=== PATIENT | female | born 1985 | race Caucasian/White ===

== ENCOUNTER 2016-06-29 03:21 | Inpatient (IN) | payer MEDICAID ==
[2016-06-29] VITALS (22 sets, daily range): BP systolic 107–144; BP diastolic 56–92
[~2016-06-29] VITALS: Ht 170.2 cm; Wt 89.5 kg
[2016-06-29] MEDS ORDERED: PREN1TAB19 PO (04:32)
[2016-06-29] MEDS ORDERED: SODIUM CHLORIDE FLUSH 10 ML ONE (04:53)
[2016-06-29] MEDS ORDERED: LIDOCAINE 1% (XYLOCAINE) 20 ML VIAL ONE (05:03)
[2016-06-29] MEDS ORDERED: OXYTOCIN INJ 20 UNIT in NS 1000ml 1,000 ML IV PRN (06:00)
[2016-06-29] MEDS ORDERED: CALCIUM CARBONATE CHEWABLE 300 MG (TUMS) TABLET PO PRN (06:00)
--- OUTSIDE RECORDS SUMMARY | 2016-06-29 06:06 | XMS REPORT | Continuity of Care Document ---
Author Author [facility] [place] Organization [facility] [place] Address [address] [place] [address] Phone Care Team Providers Care Electronics Specialist Name Role Phone Tom Shaver MD PP Yuniel Marin Unavailable Yuniel New CP Tom Reynolds Unavailable Unavailable Problems Name Dates Details Eczema, dyshidrotic (705.81, L30.1) Status: Active FEMALE GENERAL EXAM, 18 - 39 YEARS (V70.0) Status: Active Physical examination of employee (V70.5, Z02.89) Status: Active Medications Name Dates Details HYDROCORTISONE, 2.5% (External Ointment) 1 (one) Ointment apply to affected area bid for 30 days Quantity: 1 {Tube} Refills: 0 Ordered:22-Jul-2014 Nichole Ching Start 22-Jul-2014 Active No Known Historical Medications Allergies and Adverse Reactions Name Dates Details No Known Allergies (Allergy) Onset:21-Jan-2014 Status: Active No Known Drug Allergies (Allergy) Onset:21-Jan-2014 Status: Active Past Medical History No Significant Medical History. Procedures Procedure Dates Details SPECIMEN HANDLING/TRANSPORT (21546) Ordered:20-Jul-2014 Preventive Health - Female age 18 to 39 years Ordered:20-Jul-2014 Social History Name Dates Details Alcohol use: Occasional alcohol use. Status: Active Tobacco use: Never smoker. Status: Active Vital Signs Date Test Result Details 20-Jul-2014 08:57 Temperature 98.2 f Comments: Method: Temporal Pulse 76 /min Comments: Pattern: Regular BP Systolic 120 mm[Hg] Comments: Patient Position: Sitting; Cuff Location: Left Arm; Cuff Size: Standard BP Diastolic 82 mm[Hg] Comments: Patient Position: Sitting; Cuff Location: Left Arm; Cuff Size: Standard Weight 163 lb Height 67 in Body Mass Index Calculated 25.53 kg/m2 Body Surface Area Calculated 1.85 m2 21-Jan-2014 14:38 Comments: Vision: Rt-20/20; Lt-20/20 Temperature 98 f Comments: Method: Temporal Pulse 68 /min Comments: Pattern: Regular Respiration Rate 16 /min Comments: Pattern: Unlabored BP Systolic 114 mm[Hg] Comments: Patient Position: Sitting; Cuff Location: Left Arm; Cuff Size: Standard BP Diastolic 70 mm[Hg] Comments: Patient Position: Sitting; Cuff Location: Left Arm; Cuff Size: Standard Weight 157 lb Height 66.5 in Body Mass Index Calculated 24.96 kg/m2 Body Surface Area Calculated 1.81 m2 Results No Known Results Treatment Plan PAP, THIN PREP ([id number]); Ordered: 07/20/2014 Advance Directives Encounters Office Visit - FEMALE GENERAL EXAM, 18 - 39 YEARS (V70.0), Eczema, dyshidrotic (705.81 | L30.1) Encounter Reason: Well woman visit - The patient feels well with minor complaints, has good energy level and is sleeping well. Last menstrual period: Date: (06/29/14). Pap smear: Date: (2009) and Results-negative/normal. The patient is not using any method of contraception at this time. Nutrition: balanced diet and no supplemental vitamins & iron. Patient exercises daily (at work). Patient sleeps 5 hours per night. The patient reports she does not perform a monthly self breast exam., [ADDITIONAL REASON] Rash - Symptoms include skin bumps, pain, pruritus and skin redness. The skin rash is located on the left hand and right hand. Onset was sudden 2 week(s) ago. The symptoms occur constantly. The patient describes this as mild and worsening. Current treatment includes barrier creams. [facility] [place] 20-Jul-2014 to 22-Jul-2014 Office Visit - Physical examination of employee (V70.5 | Z02.89) Encounter Reason: Employee Physical - [employer] [facility]. 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 [facility] [place] On 21-Jan-2014 14:36 to 15:38 Insurance Mar Forrester ; [facility]
[2016-06-29 06:35] LABS: MEAN CORPUSCULAR HEMOGLOBIN 29.6 PG (26.0-34.0); MEAN CORPUSCULAR HGB CONC 34.9 g/dL (31.0-37.0); MEAN PLATELET VOLUME 10.6 FL (6.0-9.5); WHITE BLOOD COUNT 8.25 10^3uL (4.0-11.0)
[2016-06-29] MEDS ORDERED: SODIUM CHLORIDE FLUSH 10 ML SYR IV PRN (07:40)
[2016-06-29] MEDS ORDERED: SODIUM CHLORIDE FLUSH 3 ML SYR IV PRN (07:40)
--- NOTE | 2016-06-29 13:27 | History and Physical (E) ---
History & Physical (OB) Subjective: CC: cindy khan 30 year old at 39 1/7 weeks presents with rupture of membranes at home this morning at 01:30. Contractions every 5 minutes, mild intensity. Good movement, no vaginal bleeding. has been complicated by diet controlled gestational diabetes, anemia, and latex allergy. PNC: [facility] Hx: none PMHx: anemia and latex allergy PSHx: FOB Jean Carlos Shepherd. No tob/EtOH/ILD Allergies: Coded Allergies: latex (Verified Allergy, Intermediate, Rash, 06/29/16) had a rash and blisters from use of a condom Home Medications: Reported Medications Vit/Fe Fumarate/Fa ( Vitamins Tablet)1 Each Tablet1 Each PO DAILY #1 TAB 06/29/16 Objective: Vital Signs Date Time Temp Pulse Resp B/P Pulse Ox O2 Delivery O2 Flow Rate FiO2 06/29/16 11:37 71 138/84 06/29/16 06:45 97.8 18 06/29/16 06:26 100 Room air Laboratory Results Past 24 Hrs 06/29/16 03:54: Membranes Rupture (PAMG-1) Positive 06/29/16 06:25: Hematocrit 33.50, Hemoglobin 11.7, Mean Corpuscular Hemoglobin 29.6, Mean Corpuscular Hemoglobin Concent 34.9, Mean Corpuscular Volume 85, Mean Platelet Volume 10.6, Platelet Count 241, Red Blood Count 3.95, Red Cell Distribution Width 12.2, White Blood Count 8.25 General: Alert and oriented, NAD Chest: CTA Abdomen: Gravid Cardiovasular: RRR, No murmur Extremities: No edema FHT's: 135s, moderately reactive, +accels, no decels Cx: 2/60/-3 [place]: q4-5min Screenings: Blood type: A Positive, Rubella Immune, RPR non-reactive, HBV Negative, HIV Negative , GBS Negative. Problems/Plans: (1) with 39 completed weeks gestation Assessment & Plan: Patient would like to proceed as naturally as possible and does not plan on an epidural. Discussed with SROM that ideally we would like a delivery by 24 hours, and that with no change in 10.5 hours, she is likely going to need augmentation. Discussed using cytotec vs pitocin, and she would be ok with starting pitocin at the 12 hour bob if no change. (2) SROM (spontaneous rupture of membranes) Additional Copies to: End of Report . ELGIN ROGERS MD Jun 29, 2016 13:27
[2016-06-29] MEDS ORDERED: OXYTOCIN INJ 20 UNIT in NS 1000ml 1,000 ML IV SCH (13:30)
[2016-06-29] MEDS ORDERED: ROPIVACAINE 1% 10 MG/ML (NAROPIN) 20 ML AMPUL ONE (18:15)
--- NOTE | 2016-06-29 19:05 | NUR ---
report given Traci Davila RN
[2016-06-29 20:10] LABS: BILIRUBIN,URINE Negative (Negative); CLARITY,URINE Clear; COLOR,URINE Yellow; GLUCOSE, URINE (UA) Negative (Negative); LEUKOCYTE ESTERASE ,URINE Negative (Negative); UROBILINOGEN,URINE 0.2 mg/dL (0.2-1.0)
[2016-06-29 20:31] LABS: URINE CENTRIFUGED VOLUME 11 mL
[2016-06-30] VITALS (22 sets, daily range): BP systolic 98–142; BP diastolic 61–88
--- NOTE | 2016-06-30 05:12 | Progress Note (E) ---
Progress Note I was called due to persistent late decels, and a prolonged one that occurred just prior to my arrival. Cervix is 9/100/-1 with moderate amount of caput. Pit is at 4. Baby has responded to IV bolus, oxygen and position change intermittently. On my arrival, had a about 20 min of category I strip, followed by another late decel. Will turn pit off, and if decels continue, plan to proceed to c-s. I am concerned about LGA with the caput already present and the history of GDM. ELGIN ROGERS MD Jun 30, 2016 05:12
[2016-06-30] MEDS ORDERED: ceFAZolin 2,000 MG in SODIUM CHLORIDE VIAL (PF) 20 ML IV SCH (07:05)
[2016-06-30] MEDS ORDERED: POT BICARB/SOD BICARB/CIT AC (ALKA-SELTZER GOLD) 1 TABLET.EFF PO SCH (07:10)
[2016-06-30] MEDS ORDERED: METOCLOPRAMIDE 10 MG/2 ML (REGLAN) VIAL IV SCH (07:10)
[2016-06-30] MEDS ORDERED: SODIUM CHLORIDE 50 ML IV ONE (07:13)
[2016-06-30] MEDS ORDERED: METOCLOPRAMIDE 10 MG/2 ML (REGLAN) VIAL ONE (07:14)
[2016-06-30] MEDS ORDERED: POT BICARB/SOD BICARB/CIT AC (ALKA-SELTZER GOLD) 1 TABLET.EFF PO ONE (07:14)
[2016-06-30] MEDS ORDERED: ceFAZolin 1000 MG (ANCEF) VIAL ONE (07:14)
--- NOTE | 2016-06-30 07:14 | Progress Note (E) ---
Progress Note Patient has not made any cervical change since 2:30am. FHR has remained stable with baseline of 130s, moderate reactivity, and occasional late decels. Decision was made to proceed with . Risks and benefits were discussed and consent obtained. Will proceed as soon as staff is here. ELGIN ROGERS MD Jun 30, 2016 07:14
[2016-06-30] MEDS ORDERED: ROPIVACAINE 1% 10 MG/ML (NAROPIN) 20 ML AMPUL ONE (07:16)
[2016-06-30] MEDS ORDERED: morphine PF 0.5 MG/ML (DURAMORPH) 10 ML VIAL IV ONE (07:16)
[2016-06-30 07:26] LABS: MEAN CORPUSCULAR HEMOGLOBIN 29.2 PG (26.0-34.0); MEAN PLATELET VOLUME 10.3 FL (6.0-9.5); WHITE BLOOD COUNT 10.62 10^3uL (4.0-11.0)
[2016-06-30] MEDS ORDERED: OXYTOCIN 10 UNIT/ML (PITOCIN) 1 ML VIAL ONE ×3 (07:29→08:18)
[2016-06-30] MEDS ORDERED: MIDAZOLAM 2 MG/2 ML (VERSED) VIAL ONE (07:35)
[2016-06-30 08:03] LABS: ANION GAP 10.7 MEQ/L (3-15)
--- NOTE | 2016-06-30 08:39 | Operative Report (E) ---
Operative Report (E) 06/30/16 08:29 Pre-Operative Diagnosis: 1. Term intrauterine 2. Failure to progress 3. Diet controlled gestational diabetes 4. Anemia Post-Operative Diagnosis: 1. Term intrauterine 2. Failure to progress 3. Diet controlled gestational diabetes 4. Anemia Procedure: Primary low transverse Surgeon: Maria De Jesus Carlson MD Registration Clerk: Cary Jones MD Anesthesia: Epidural EBL: <500ml Findings: 1. Term viable male, birthweight 7 pounds 8 ounces, 3410 grams, Apgars 9 and 9. 2. OP presentation 3. Normal uterus, tubes and ovaries Description of Procedure Patient was advised of risks of procedure and elected to proceed. See H&P for details. Labor epidural was converted in the preoperative room, and then patient was taken to operating room. Patient was prepped and draped in the usual sterile fashion. Time out was performed. Anesthesia was tested and found to be adequate. A Pfannenstiel incision was made and carried to the level of fascia. The fascial incision was then extended laterally with Newton scissors. The superior fascia was grasped with Simone clamps and dissected away from the underlying musculature bluntly and with Newton scissors. The inferior fascia was then grasped with Kochers and dissected away bluntly and with Newton scissors. The abdominal cavity was then entered bluntly. The bladder blade was placed. A bladder flap was created with Newton scissors. The bladder blade was replaced. A low transverse uterine incision was made with scalpel and the uterus was entered. Baby was in OP position. The vertex was grasped and baby delivered atraumatically with fundal pressure. The cord was clamped and cut, and baby was handed to waiting nursing personnel. The placenta was then delivered manually. The uterus was exteriorized and wiped free of clots and decidua. The uterine incision was grasped with ring forceps. The uterine incision was then repaired in a running, locking fashion with 0 Vicryl. It was then imbricated with a running, non- locking suture of 0 Vicryl. A few areas of bleeding were controlled with figure of 8 sutures. The uterus was returned to the abdominal cavity, and the pericolic gutters were inspected and found to be dry. The peritoneum was closed with a running, non-locking suture of 2-0 Vicryl. The fascia was closed with a running, non-locking suture of 0 Vicryl. The skin was then closed with Insorb stapler. Counts were correct x2. The patient was returned to the postoperative room in stable condition. ELGIN CARLSON MD Jun 30, 2016 08:39
[2016-06-30] MEDS ORDERED: LANOLIN OINTMENT 28 GM TUBE TOP PRN (08:40)
[2016-06-30] MEDS ORDERED: OXYTOCIN INJ 20 UNIT in NS 1000ml 1,000 ML IV SCH (08:40)
[2016-06-30] MEDS: IBUPROFEN 600 MG (MOTRIN) TAB PO SCH ×4 (13:00→23:23)
[2016-06-30] MEDS ORDERED: SODIUM CHLORIDE FLUSH 10 ML ONE (16:23)
--- NOTE | 2016-06-30 16:35 | NUR ---
iv fluids infused converted to sl flushed with 10 cc ns. flushes easily. no edema,pain or redness
--- NOTE | 2016-06-30 18:50 | NUR ---
report to susan galindo rn
[2016-06-30] MEDS: DOCUSATE SODIUM 100 MG (COLACE) CAP PO SCH (21:03)
[2016-07-01 00:18] VITALS: BP 135/71
[2016-07-01 04:02] VITALS: BP 120/69
[2016-07-01] MEDS: IBUPROFEN 600 MG (MOTRIN) TAB PO SCH ×4 (05:37→23:09)
[2016-07-01 07:10] LABS: MEAN CORPUSCULAR HEMOGLOBIN 29.2 PG (26.0-34.0); MEAN CORPUSCULAR HGB CONC 33.7 g/dL (31.0-37.0); MEAN PLATELET VOLUME 9.8 FL (6.0-9.5); WHITE BLOOD COUNT 10.87 10^3uL (4.0-11.0)
[2016-07-01 07:49] VITALS: BP 130/81
[2016-07-01] MEDS: oxyCODONE/ACETAMINOPHEN 5MG-325 MG (PERCOCET) TABLET PO PRN ×2 (10:19→15:52)
--- NOTE | 2016-07-01 12:47 | Progress Note (E) ---
Post- Progress Note Subjective: Doing well. Ambulating, voiding, passing flatus. No BM yet. Tolerating full diet. Pain controlled. Nursing going well. Objective: Vital Signs Date Time Temp Pulse Resp B/P Pulse Ox O2 Delivery O2 Flow Rate FiO2 07/01/16 07:49 97.4 96 17 130/81 98 Room air I & O 06/30/16 07/01/16 19:00 07:00 Intake Total 1800 ml 1300 ml Output Total 3250 ml 3000 ml Balance -1450 ml -1700 ml Laboratory Tests 06/30/16 14:43: Hematocrit 28.20, Hemoglobin 9.6 07/01/16 07:00: Hematocrit 27.90, Hemoglobin 9.4, Mean Corpuscular Hemoglobin 29.2, Mean Corpuscular Hemoglobin Concent 33.7, Mean Corpuscular Volume 87, Mean Platelet Volume 9.8, Platelet Count 223, Red Blood Count 3.22, Red Cell Distribution Width 12.8, White Blood Count 10.87 Blood type: A Positive, Current Medications Ibuprofen 600 mg Q6HR PO Last administered on 07/01/16 05:37; Admin Dose 600 MG ; Start 06/30/16 at 08:40 Oxycodone/ Acetaminophen 1-2 TABS Q4H PRN PO Last administered on 07/01/16 10: 19; Admin Dose 1 TAB; Start 06/30/16 at 08:40 Docusate Sodium 100 mg HS PO Last administered on 06/30/16 21:03; Admin Dose 100 MG; Start 06/30/16 at 21:00 General: Alert and oriented, NAD Abdomen: Soft, non-distended, fundus firm Extremities: No edema Skin: Inc c/d/i Problems/Plans: (1) delivery, delivered, current hospitalization Assessment & Plan: Routine cares. (2) Gestational diabetes mellitus Assessment & Plan: FBS 109. Will need 2 hr GTT at 6 weeks . ELGIN ROGERS MD Jul 01, 2016 12:34
[2016-07-01 20:10] VITALS: BP 128/66
[2016-07-01] MEDS: DOCUSATE SODIUM 100 MG (COLACE) CAP PO SCH (20:22)
--- NOTE | 2016-07-02 04:53 | NUR ---
VSS. Voiding well, had BM 0300. 2+ pitting edema present. Labia swollen, Pt requests ice. Tolerating regular diet. Pain controlled with PO meds. Bleeding less than normal period. Fundus firm, midline and-1 umbilicus. Bonding well with . Have not seen significant other this shift. Pt states he left at 0700 07/01/16.
[2016-07-02] MEDS: IBUPROFEN 600 MG (MOTRIN) TAB PO SCH ×3 (06:21→18:42)
[2016-07-02 08:00] VITALS: BP 128/80
--- NOTE | 2016-07-02 12:58 | Progress Note (E) ---
Post- Progress Note Subjective: Doing well. Nursing going well. Ambulating, voiding, had BM. Tolerating full diet. Pain controlled with motrin alone. Lochia minor. Objective: Vital Signs Date Time Temp Pulse Resp B/P Pulse Ox O2 Delivery O2 Flow Rate FiO2 07/02/16 08:00 97.9 80 18 128/80 Room air 07/01/16 07:49 98 Blood type: A Positive, Current Medications Docusate Sodium 100 mg HS PO Last administered on 07/01/16t 20:22; Admin Dose 100 MG; Start 06/30/16 at 21:00 General: Alert and oriented, NAD Abdomen: Soft, non-distended, fundus firm Extremities: No edema Skin: Inc c/d/i Problems/Plans: (1) delivery, delivered, current hospitalization Assessment & Plan: Routine cares. Possible discharge tomorrow. (2) Gestational diabetes mellitus Assessment & Plan: FBS 109. Will need 2 hr GTT at 6 weeks . ELGIN ROGERS MD Jul 02, 2016 12:58
[2016-07-02] MEDS ORDERED: DOCU100C8 PO (13:00)
[2016-07-02] MEDS ORDERED: IBUP-1772 PO (13:00)
[2016-07-02] MEDS ORDERED: OXYC1TAB87 PO (13:00)
[2016-07-02 20:05] VITALS: BP 130/76
[2016-07-02] MEDS: DOCUSATE SODIUM 100 MG (COLACE) CAP PO SCH (20:10)
[2016-07-03] MEDS: IBUPROFEN 600 MG (MOTRIN) TAB PO SCH ×3 (02:20→14:20)
[2016-07-03 08:30] VITALS: BP 128/83
--- NOTE | 2016-07-03 12:30 | Discharge Instructions (E) ---
Discharge Instructions Instructions Do not lift greater than 10 pounds for 2 weeks. Do not submerge incision until completely healed. Do not drive while on narcotics (oxycodone). Continue taking stool softener (docusate) while on narcotics. Discharge Diet: Regular ELGIN ROGERS MD Jul 02, 2016 13:01
[2016-07-03] MEDS ORDERED: FERR-74 PO (12:34)
--- NOTE | 2016-07-03 12:35 | Discharge Summary (E) ---
OB Discharge Summary Admit Date/Time Jun 29, 2016 at 04:10 Discharge Date/Time Jul 03, 2016 at 12:30 Admitting Provider Jasmyn Carlson MD Primary Care Provider Fang Bauman MD Attending Provider Jasmyn Carlson MD Consulting Provider Procedures Primary low transverse Admission Diagnosis Term intrauterine History and Present Illness See History and Physical for complete details. Hospital Course and Treatment Patient had a typical operative course and did well post-operatively. On day of discharge, she is ambulating, voiding, stooling, tolerating full diet, and pain is controlled by ibuprofen. Discharge Physicial Exam General Alert and oriented, NAD Abdomen Soft, non-distended, fundus firm Extremities 1+ pitting edema Skin: Inc c/d/i Laboratory Results Past 5 Days 06/29/16 03:54: Membranes Rupture (PAMG-1) Positive 06/29/16 06:25: Hematocrit 33.50L, Hemoglobin 11.7L, Mean Corpuscular Hemoglobin 29.6, Mean Corpuscular Hemoglobin Concent 34.9, Mean Corpuscular Volume 85, Mean Platelet Volume 10.6H, Platelet Count 241, Red Blood Count 3.95L, Red Cell Distribution Width 12.2, White Blood Count 8.25 06/29/16 19:35: Urine Bacteria None seen, Urine Bilirubin Negative, Urine Blood 2+H, Urine Clarity Clear, Urine Collection Type Catheter, Urine Color Yellow, Urine Glucose (UA) Negative, Urine Ketones 2+H, Urine Leukocyte Esterase Negative, Urine Microscopic RBC 5-10H, Urine Mucus 1+, Urine Nitrite Negative, Urine Protein Negative, Urine Specific [place] 1.015, Urine Squamous Epithelial Cells 5-10, Urine Urobilinogen 0.2, Urine WBC 0-2, Urine pH 7.0, Volume Urine Centrifuged 11 ml 06/30/16 07:16: Hematocrit 32.90L, Hemoglobin 11.2L, Mean Corpuscular Hemoglobin 29.2, Mean Corpuscular Hemoglobin Concent 34.0, Mean Corpuscular Volume 86, Mean Platelet Volume 10.3H, Platelet Count 204, Red Blood Count 3.83L, Red Cell Distribution Width 12.6, White Blood Count 10.62, Activated Partial Thromboplast Time 30.1, Anion Gap 10.7, BUN/Creatinine Ratio 12, Blood Urea Nitrogen 8, Calcium Level 7.9L, Carbon Dioxide Level 19L, Chloride Level 113H, Creatinine 0.67, Estimat Glomerular Filtration Rate 125.9, Estimated GFR (Non- 104.1, Glucose Level 82, Potassium Level 3.9, Prothromb Time International Ratio 1.1, Prothrombin Time 11.7, Sodium Level 139 06/30/16 14:43: Hematocrit 28.20L, Hemoglobin 9.6L 07/01/16 07:00: Hematocrit 27.90L, Hemoglobin 9.4L, Mean Corpuscular Hemoglobin 29.2, Mean Corpuscular Hemoglobin Concent 33.7, Mean Corpuscular Volume 87, Mean Platelet Volume 9.8H, Platelet Count 223, Red Blood Count 3.22L, Red Cell Distribution Width 12.8, White Blood Count 10.87 Discharge Disposition To home Instructions Do not lift greater than 10 pounds for 2 weeks. Do not submerge incision until completely healed. Do not drive while on narcotics (oxycodone). Continue taking stool softener (docusate) while on narcotics. Diet Discharge Medications New Medications: Ferrous Sulfate (Ferrous Sulfate) 325 Mg Tablet 325 MG PO DAILY #30 Ref 0 TAB Docusate Sodium (Docusate Sodium) 100 Mg Capsule 100 MG PO HS PRN CONSTIPATION #10 CAP Ibuprofen (Ibuprofen) 600 Mg Tablet 600 MG PO Q6HR PRN PAIN #30 TAB Oxycodone HCl/Acetaminophen (Endocet) 1 Tab Tablet 1-2 TAB PO Q4H PRN Breakthrough Pain #10 TAB Continued Medications: Vit/Fe Fumarate/Fa ( Vitamins Tablet) 1 Each Tablet 1 EACH PO DAILY #1 TAB Follow up Follow up Referrals: Family Practice - Within 6 weeks with Fang Bauman Md Family Practice - 07/08/16 with Jasmyn Carlson Md Discharge Diagnosis Problems/Plans: (1) delivery, delivered, current hospitalization Assessment & Plan: Routine cares. Possible discharge tomorrow. (2) Gestational diabetes mellitus Assessment & Plan: FBS 109, 108 and 84. Will need 2 hr GTT at 6 weeks . (3) Anemia during , delivered, current hospitalization Assessment & Plan: Continue iron for 4 weeks . Copies to: Additional Provider: FANG BAUMAN MD End of Report . JASMYN CARLSON MD Jul 03, 2016 12:34
--- NOTE | 2016-07-03 17:28 | NUR ---
1700 Pt discharged in good condition. Discharge teaching/instructions reviewed with pt, who denies questions at this time. Advised her to call any time should she have questions. Pt walked, while father of the baby carried the baby, secured in infant seat, and RN accompanied them to the front entrance of the hospital where the family left via private vehicle.
== END 2016-07-03 17:05 | disposition home or self-care (01) | DRG 766 ==
LOC: OBGOP 03:21 → OB 03:21 → OBGOP 04:10 → OB 04:10
PROVIDERS: ADMIT Family Medicine; ATTEND Family Medicine
PROC: 10D00Z1 Extraction of Products of Conception, Low, Open Approach (ICD-10-PCS; principal; 2016-06-30)
DX: O24.420 Gestational diabetes mellitus in childbirth, diet controlled (principal); O99.02 Anemia complicating childbirth; D64.9 Anemia, unspecified; O76 Abnormality in fetal heart rate and rhythm complicating labor and delivery; Z3A.39 39 weeks gestation of pregnancy; Z37.0 Single live birth; Z91.040 Latex allergy status
CPT/HCPCS: 36415; 59510; 80048; 81003; 81015; 84112; 85014; 85018; 85027; 85610; 85730; 86850; 86900; 86901; 94762; 99202